=== PATIENT | female | born 1965 | race Caucasian/White ===

== ENCOUNTER 2017-05-28 17:36 | Emergency (ER) | payer OTHER, MEDICARE ==
[~2017-05-28] VITALS: Ht 154.9 cm; Wt 84.4 kg
--- NOTE | 2017-05-28 19:08 | ED GI/GU/ABDOMINAL COMPLAINT ---
History of Present Illness General Chief Complaint: Nausea, Vomiting, Diarrhea Stated Complaint: NVD X5 HRS Source: patient, old records Exam Limitations: no limitations Vital Signs & Intake/Output Vital Signs & Intake/Output Vital Signs Date Time Temp Pulse Resp B/P B/P Pulse O2 O2 Flow FiO2 Mean Ox Delivery Rate 05/29 2039 97.8 86 18 128/70 97 Room Air 05/28 1742 97.4 103 20 120/82 97 Room Air Allergies Coded Allergies: No Known Allergies (05/28/17) Reconcile Medications Ondansetron (Zofran Odt) 4 MG TAB.RAPDIS 1 TAB SL TID PRN nausea Triage Note: PT TO ED C/O N/V/D X 6 HOURS. Triage Nurses Notes Reviewed? yes ? N Is pt currently ? No Onset: Abrupt Duration: hour(s): (5), constant Timing: recent history Quality/Severity: aching, cramping Severity Numbers: 5 Location: generalized abdomen Radiation: no radiation Activities at Onset: none No Modifying Factors: none Associated Symptoms: denies HPI: 51-year-old female history of hypertension presents to the ER for evaluation complain of sudden onset nausea vomiting diarrhea while driving to [place] from [place]. She reports C generalized abdominal cramping. No history of abdominal surgeries in the past. No sick contacts no recent travel no fever no chills no chest pain. She denies any urinary urgency frequency dysuria. She is not taken anything for her symptoms. She denies alcohol use. (Amrit Rothman) Past History Travel History Traveled to [facility] past 21 day No Medical History Any Pertinent Medical History? see below for history Cardiovascular: hypertension Psychiatric: anxiety, depression, ADD Surgical History Surgical History: none Psychosocial History What is your primary language Austrian Tobacco Use: Current Daily Use Daily Tobacco Use Amount/Type: => 5 Cigarettes daily ETOH Use: denies use Illicit Drug Use: denies illicit drug use Family History Hx Contributory? No (Amrit Rothman) Review of Systems Review of Systems Constitutional: Reports: see HPI. Comments Review of systems: See HPI, All other systems negative. Constitutional, no chills no fever HEENT: no sore throat no congestion Cardiovascular: No chest pain Skin: no rashes, no change in skin Respiratory: No dyspnea no cough no sputum GI: see hpi : No dysuria No hematuria, no frequency Muscle skeletal: No joint pain, no back pain Neurologic: , no headache Heme/endocrine: No bruising Immunology: No lymphadenopathy (Amrit Rothman) Physical Exam Physical Exam General Appearance: well developed/nourished, alert, awake Gastrointestinal: soft Comments: Well-developed well-nourished person in no acute distress HEENT: Normal EENT exam; PERRL, EOMI,. HEAD is atraumatic. moist mucous membranes. Neck: Supple, normal range of motion Back: Nontender, no CVA tenderness. Full range of motion Cardiovascular: Regular rate and rhythms no murmurs Respiratory: No respiratory distress. Patient speaking in full complete sentences. Breath sounds clear to auscultation bilaterally: NO W/R/R Abdomen: Soft, nontender nondistended, no appreciable organomegaly. Normal bowel sounds. No rebound/guarding, No appreciable enlargement of the abdominal aorta, No ascites. Extremity: No edema, full range of motion of extremities Neuro: Alert oriented x3, motor sensory normal, There were no obvious focal neurologic abnormalities. Skin: No appreciable rash on exposed skin, skin is warm and dry. No jaundice no diaphoresis Psych: Mood and affect is normal, memory and judgment is normal. Core Measures ACS in differential dx? No Sepsis Present: No Sepsis Focused Exam Completed? No (Amrit Rothman) Progress Differential Diagnosis: appendicitis, biliary colic, bowel obstruction, colon cancer, cholecystitis, diverticulitis, gastritis, hepatitis, hernia, inflamm bowel dis, pancreatitis, peptic ulcer, PUD/GERD, perforated viscous Plan of Care: Orders Procedure Date/time Status LIPASE 05/28 1748 Complete HUMAN BETA HCG SCREEN 05/28 1748 Complete COMPREHENSIVE METABOLIC PANEL 05/28 1748 Complete CBC WITHOUT DIFFERENTIAL 05/28 1748 Complete Laboratory Tests 05/28/171905: Anion Gap 9, Estimated GFR > 60, BUN/Creatinine Ratio 37.1 H, Glucose 110 H, Calcium 9.2, Total Bilirubin 0.7, AST 16, ALT 35, Alkaline Phosphatase 123, Total Protein 7.2, Albumin 4.3, Globulin 2.9, Albumin/Globulin Ratio 1.5, Lipase 42, Total Beta HCG NEGATIVE 05/28/171901: CBC w Diff NO MAN DIFF REQ, RBC 4.71, MCV 85.8, MCH 29.0, MCHC 33.7, RDW 14.4, MPV 8.7, Gran % 89.5 H, Lymphocytes % 7.2 L, Monocytes % 1.2 L, Eosinophils % 2.0, Basophils % 0.1, Absolute Granulocytes 8.8 H, Absolute Lymphocytes 0.7 L, Absolute Monocytes 0.1, Absolute Eosinophils 0.2, Absolute Basophils 0 Labs ordered patient medicated Zofran IV fluids and Pepcid Toradol 1954 discussed with patient all her labs she reports to feeling improved we will by mouth challenge her I do not believe she requires any imaging given the symptoms there is no pain her abdomen exam is soft nontender. casen /w dr woods agrees with plan 2014 patient is tolerating challenge no pain she's had no vomiting diarrhea here in the department she feels well enough to go home she is nontoxic appearing we' ll send her home with prescription for Zofran return precautions were discussed at length.. Initial ED EKG: none (Amrit Rothman) Departure Departure Disposition: HOME OR SELF CARE Condition: Stable Clinical Impression Primary Impression: Nausea vomiting and diarrhea Referrals: Patient Has No Primary Care Dr (PCP/Family) Additional Instructions: zofran for nausea. bland diet, clear liquids, advance as tolerated. follow up with your pmd, return with any concerns Departure Forms: Customer Survey General Discharge Information Prescriptions: Current Visit Scripts Ondansetron (Zofran Odt) 1 TAB SL TID PRN nausea #10 TAB (Amrit Rothman) PA/LANDCARE FACILITATOR Co-Sign Statement Statement: ED Attending supervision documentation- I saw and evaluated the patient. I have also reviewed all the pertinent lab results and diagnostic results. I agree with the findings and the plan of care as documented in the PA's/LANDCARE FACILITATOR's documentation. x I have reviewed the ED Record and agree with the PA's/LANDCARE FACILITATOR's documentation. [] Additions or exceptions (if any) to the PAs/LANDCARE FACILITATOR's note and plan are summarized below: [] (Lea CASTILLO,Wilfrid)
[2017-05-28 19:15] LABS: ABSOLUTE BASOPHIL COUNT 0 /CUMM (0.0-0.2); ABSOLUTE EOSINOPHIL COUNT 0.2 /CUMM (0.0-0.7); ABSOLUTE GRANULOCYTE CT 8.8 /CUMM (1.4-6.5); ABSOLUTE LYMPH COUNT 0.7 /CUMM (1.2-3.4); ABSOLUTE MONOCYTE COUNT 0.1 /CUMM (0.10-0.60); BASOPHIL % 0.1 % (0.0-2.0); GRANULOCYTE % 89.5 % (42.2-75.2); HEMATOCRIT 40.4 % (37-47); MEAN CORPUSCULAR HGB CONC 33.7 G/DL (33.0-37.0); MEAN CORPUSCULAR VOLUME 85.8 FL (81.0-99.0); MEAN PLATELET VOLUME 8.7 FL (7.4-10.4); PLATELET COUNT 237 /CUMM (130-400); RBC DISTRIBUTION WIDTH 14.4 % (11.5-14.5); RED BLOOD CELL CT 4.71 /CUMM (4.20-5.40); WHITE BLOOD CELL COUNT 9.8 /CUMM (4.8-10.8)
[2017-05-28] MEDS ORDERED: ZOFRAN ODT4 M1 SL (19:52)
[2017-05-28 20:40] VITALS: BP 128/70
== END 2017-05-28 20:43 ==
LOC: ERH 17:36
PROVIDERS: Physician Assistant Medical
DX: R11.2 Nausea with vomiting, unspecified (principal); R19.7 Diarrhea, unspecified
CPT/HCPCS: 96374; 96375; J1885; J2405